=== PATIENT | female | born 1965 | race Caucasian/White ===

== ENCOUNTER 2018-11-05 11:55 | Observation (INO) | payer BC ==
[~2018-11-05] VITALS: Ht 152.4 cm; Wt 68.0 kg
[2018-11-05] MEDS ORDERED: ASPIRIN 81 MG CHEW TAB PO ONE (12:15)
[2018-11-05 12:27] LABS: BASOPHILS % 0.6 % (0.0-1.0); EOSINOPHILS # (AUTO) 0.1 (0.0-0.4); EOSINOPHILS % 1.6 % (0.0-6.0); HEMATOCRIT 40.2 % (34.2-44.1); HEMOGLOBIN 13.2 g/dL (12.0-16.0); LYMPHOCYTES # (AUTO) 1.7 (1.0-3.2); LYMPHOCYTES % 33.9 % (18.0-39.1); MEAN CORPUSCULAR HEMOGLOBIN 27.7 pg (28-32); MEAN CORPUSCULAR HGB CONC 32.8 g/dL (31-35); MEAN CORPUSCULAR VOLUME 84.3 fL (81-99); MONOCYTES # (AUTO) 0.4 (0.2-0.8); MONOCYTES % 7.7 % (4.4-11.3); NEUTROPHILS # (AUTO) 2.8 (2.1-6.9); PLATELET COUNT 235 x10e3/uL (140-360); RED BLOOD COUNT 4.77 x10e6/uL (3.6-5.1); RED CELL DISTRIBUTION WIDTH 13.7 % (11.7-14.4)
[2018-11-05 12:40] LABS: ALANINE AMINOTRANSFERASE 18 IU/L (0-55); ALBUMIN 4.1 g/dL (3.5-5.0); ALKALINE PHOSPHATASE 115 IU/L (40-150); ANION GAP 9.8 mmol/L (8-16); BLOOD UREA NITROGEN 18 mg/dL (7-26); BUN/CREATININE RATIO 20 (6-25); CALCIUM 10.1 mg/dL (8.4-10.2); CARBON DIOXIDE 29 mmol/L (22-29); CHLORIDE 101 mmol/L (98-107); CREATINE KINASE 76 IU/L (29-168); CREATININE, SERUM 0.88 mg/dL (0.57-1.11); EST GLOMERULAR FILTRATION RATE > 60 ML/MIN (60-); GLUCOSE 118 mg/dL (74-118); POTASSIUM 3.8 mmol/L (3.5-5.1); SODIUM 136 mmol/L (136-145)
--- NOTE | 2018-11-05 12:45 | NUR ---
Dr. Randolph at bedside.
[2018-11-05 12:51] LABS: INR 0.87; PROTHROMBIN TIME 12.3 seconds (11.9-14.5)
[2018-11-05 12:52] LABS: PARTIAL THROMBOPLASTIN TIME 30.3 seconds (23.8-35.5)
[2018-11-05] MEDS ORDERED: ESIDRIX25 MG PO (12:53)
[2018-11-05] MEDS ORDERED: MOTRIN800 MG PO (12:53)
[2018-11-05] MEDS ORDERED: SERTRALINE HCL50 MG PO (12:53)
[2018-11-05] MEDS ORDERED: CARVEDILOL25 MG (12:53)
[2018-11-05] MEDS ORDERED: LOSARTAN POTASS50 MG (12:53)
[2018-11-05] MEDS ORDERED: CLONAZEPAM0.5 MG (12:53)
[2018-11-05] MEDS ORDERED: ULTRAM 50MG50 MG PO (12:53)
[2018-11-05] MEDS ORDERED: PROMETHAZINE HC25 M1 (12:53)
[2018-11-05] MEDS ORDERED: ONDANSETRON HCL INJ 2MG/ML 2ML 2 MG/ML VIAL IV STA (12:56)
[2018-11-05] MEDS ORDERED: MORPHINE SULFATE 2 MG/ML SYR 1ML IV STA (12:56)
[2018-11-05] MEDS ORDERED: HALOPERIDOL LACTATE 5 MG/ML VIAL IV ONE (13:00)
--- NOTE | 2018-11-05 13:12 | Diagnostic Imaging Report ---
EXAM: CHEST SINGLE (PORTABLE) DATE: 11/05/2018 12:04 PM INDICATION: Chest pain COMPARISON: None FINDINGS: Lines and tubes: None Heart size normal. No focal pulmonary opacity, pleural effusion or pneumothorax. Upper abdomen unremarkable. No acute bony abnormality. IMPRESSION: No evidence for acute disease. Signed by: Dr. Luis Baca M.D. on 11/05/2018 1:09 PM
[2018-11-05] MEDS ORDERED: MORPHINE SULFATE INJ 4 MG/ML INJ 1ML IV SCH (13:15)
[2018-11-05 13:16] LABS: CLARITY,URINE CLEAR (CLEAR); COLOR,URINE YELLOW (YELLOW)
[2018-11-05 13:17] LABS: BILIRUBIN,URINE NEGATIVE (NEGATIVE); KETONES,URINE NEGATIVE (NEGATIVE); LEUKOCYTE ESTERASE ,URINE NEGATIVE (NEGATIVE); NITRITE,URINE NEGATIVE (NEGATIVE); PROTEIN,URINE DIPSTICK NEGATIVE (NEGATIVE); URINE UROBILINOGEN 0.2 mg/dL (0.2 - 1)
[2018-11-05 13:28] LABS: BACTERIA,URINE FEW /HPF; EPITHELIAL CELLS,URINE MANY /LPF
--- NOTE | 2018-11-05 13:28 | NUR ---
Room darkened to decrease stimuli, pt positioned to comfort. Pt's door is left open per pt request to "get some air."
[2018-11-05] MEDS ORDERED: KETOROLAC TROMETHAMINE 30 MG/ML VIAL IV ONE (14:53)
[2018-11-05] MEDS ORDERED: ONDANSETRON HCL INJ 2MG/ML 2ML 2 MG/ML VIAL IV PRN (19:00)
[2018-11-05] MEDS ORDERED: HYDROMORPHONE 1MG/1ML INJ IV PRN (19:00)
[2018-11-05] MEDS ORDERED: HYDROMORPHONE 2MG/ML 2 MG/ML ML IV PRN (19:00)
[2018-11-05] MEDS ORDERED: NITROGLYCERIN 0.4 MG SUBL SL PRN (19:00)
[2018-11-05] MEDS ORDERED: SODIUM CHLORIDE FLUSH 10 ML SYR INJ PRN (19:00)
[2018-11-05] MEDS: FAMOTIDINE 20 MG TAB PO SCH (19:52)
[2018-11-05 21:14] LABS: CREATINE KINASE MB 2.5 ng/mL (0-5.0)
--- OUTSIDE RECORDS SUMMARY | 2018-11-05 21:17 | XMS REPORT ---
Author Author [facility] Address Unknown Phone Unavailable Care Team Providers Care Fire Equipment Inspector Helper Name Role Phone Angel CASTILLO Unavailable Unavailable Problems This patient has no known problems. Allergies, Adverse Reactions, Alerts This patient has no known allergies or adverse reactions. Medications This patient has no known medications. Results Test Description Test Time Test Comments Text Results Atomic Results Result Comments CHEST SINGLE (PORTABLE) 2018-11-05 13:08:00 [facility] [address] [place] [address] Patient Name: YEISON ZURITA MR #: [id number] : 1965 Age/Sex: 53/F Req #: [id number] Adm Physician: Ordered by: RAEANN CASTILLO MD Report #: [id number] Location: ER Room/Bed: Procedure: [id number] DX/CHEST SINGLE (PORTABLE) Exam Date: 11/05/18 Exam Time: 1230 REPORT STATUS: Signed EXAM: CHEST SINGLE (PORTABLE) DATE: 11/05/2018 12:04 PM INDICATION: Chest pain COMPARISON: None FINDINGS: Lines and tubes: None Heart size normal. No focal pulmonary opacity, pleural effusion or pneumothorax. Upper abdomen unremarkable. No acute bony abnormality. IMPRESSION: No evidence for acute disease. Signed by: Dr. Raeann Campo M.D. on 11/05/2018 1:09 PM Dictated By: RAEANN CAMPO MD [id number] Transcribed By: HELEN on 11/05/18 1300 COPY TO: RAEANN CASTILLO MD
[2018-11-05 21:32] VITALS: BP 166/75
--- NOTE | 2018-11-05 21:32 | NUR ---
pt received from er via stretcher. no ss of distress noted upon admission. pt made comfortable and oriented to rm. tele in place. pt co mild chest discomfort. discussed pain mngt poc. hx obtained at time. will cont to follow poc. call quach within reach.
[2018-11-05 22:00] VITALS: BP 166/75
[2018-11-05] MEDS ORDERED: KETOROLAC TROMETHAMINE 30 MG/ML VIAL IV STA (22:29)
--- NOTE | 2018-11-05 22:29 | NUR ---
spoke to dr valenzuela visual communications instructor for dr das in regards to new consult and pain mngt. new orders received.
[2018-11-05] MEDS ORDERED: ACETAMINOPHEN 325 MG TAB PO PRN (22:30)
[2018-11-06] VITALS (7 sets, daily range): BP systolic 162–179; BP diastolic 72–87
[2018-11-06 03:53] LABS: BASOPHILS % 0.7 % (0.0-1.0); EOSINOPHILS # (AUTO) 0.1 (0.0-0.4); EOSINOPHILS % 1.6 % (0.0-6.0); HEMOGLOBIN 12.5 g/dL (12.0-16.0); LYMPHOCYTES # (AUTO) 1.8 (1.0-3.2); LYMPHOCYTES % 31.4 % (18.0-39.1); MEAN CORPUSCULAR HEMOGLOBIN 27.5 pg (28-32); MEAN CORPUSCULAR HGB CONC 32.9 g/dL (31-35); MEAN CORPUSCULAR VOLUME 83.5 fL (81-99); MONOCYTES # (AUTO) 0.6 (0.2-0.8); MONOCYTES % 9.7 % (4.4-11.3); NEUTROPHILS # (AUTO) 3.3 (2.1-6.9); NEUTROPHILS % 56.4 % (38.7-80.0); PLATELET COUNT 208 x10e3/uL (140-360); RED BLOOD COUNT 4.55 x10e6/uL (3.6-5.1); RED CELL DISTRIBUTION WIDTH 13.6 % (11.7-14.4)
--- NOTE | 2018-11-06 03:56 | NUR ---
blood collected and sent to lab. no ss of distress noted. call quach within reach.
[2018-11-06 04:03] LABS: ANION GAP 13.1 mmol/L (8-16); BLOOD UREA NITROGEN 20 mg/dL (7-26); BUN/CREATININE RATIO 23 (6-25); CARBON DIOXIDE 25 mmol/L (22-29); CHLORIDE 100 mmol/L (98-107); CHOL/HDL RATIO 3.4 (3.0-3.6); CHOLESTEROL 219 MD/DL (0-199); CREATININE, SERUM 0.87 mg/dL (0.57-1.11); EST GLOMERULAR FILTRATION RATE > 60 ML/MIN (60-); GLUCOSE 91 mg/dL (74-118); HDL CHOLESTEROL 65 MG/DL (40-60); LDL CHOLESTEROL 144 MG/DL (60-130); POTASSIUM 3.1 mmol/L (3.5-5.1); SODIUM 135 mmol/L (136-145); TRIGLYCERIDES 50 MG/DL (0-149)
[2018-11-06 04:16] LABS: CALCIUM 9.6 mg/dL (8.4-10.2)
--- NOTE | 2018-11-06 04:26 | NUR ---
pt resting. no ss of distress noted. call quach within reach.
[2018-11-06 05:30] LABS: CREATINE KINASE MB 2.1 ng/mL (0-5.0)
[2018-11-06] MEDS: FAMOTIDINE 20 MG TAB PO SCH (08:35)
[2018-11-06] MEDS ORDERED: ASPIRIN 81 MG ENTERIC COATED PO SCH (09:00)
[2018-11-06] MEDS ORDERED: POTASSIUM CHLORIDE 20 MEQ TAB CR PO ONE (15:30)
--- NOTE | 2018-11-06 20:18 | Consultation ---
DATE OF CONSULTATION: 11/06/2018 Cardiology Consultation REASON FOR CONSULTATION: Chest pain. HISTORY OF PRESENT ILLNESS: This is a 53-year-old woman with history of patent ductus arteriosus, for which status post closure, hypertension, and hyperlipidemia, who presents with complaints of chest pain. The patient indicates that she had been feeling well until yesterday when she experienced left-sided chest pain while seated. She reports that chest pain was associated with diaphoresis, shortness of breath, and nausea. The pain was 10/10 in severity and lasted hours until she presented to the ER and was given medications. She denied any orthopnea or PND, but does endorse chronic edema. In addition, she indicates that she continues to have glue come out from one of the access sites for her vein ablation. REVIEW OF SYSTEMS: Negative as per HPI. PAST MEDICAL HISTORY: 1. History of patent ductus arteriosus. 2. Hypertension. 3. Hyperlipidemia. 4. Venous insufficiency, status post ablation. PAST SURGICAL HISTORY: Bunionectomy. ALLERGIES: PLEASE SEE EMR. MEDICATIONS: Please see medication list. SOCIAL HISTORY: Denies tobacco or illicit drugs, but does drink occasionally. FAMILY HISTORY: Unknown as she was adopted. PHYSICAL EXAMINATION: VITAL SIGNS: Temperature 97.5 degrees, pulse 80, respiratory rate 17, blood pressure 162/72, oxygen saturation 98% on room air. GENERAL: Awake, alert, no acute distress. Well developed, well nourished. HEENT: Normocephalic and atraumatic. Pupils equal. No scleral icterus. NECK: Supple. No thyromegaly or cervical lymphadenopathy. No carotid bruits. LUNGS: Clear to auscultation bilaterally. No wheezes or crackles. CARDIOVASCULAR: Normal rate, regular rhythm. No murmur. Normal S1, S2. ABDOMEN: Soft, nontender. EXTREMITIES: No edema. NEURO: Nonfocal exam. LABORATORY DATA: WBC 5.76, hemoglobin 12.5, hematocrit 38, platelets 208. Sodium 135, potassium 3.1, chloride 100, CO2 25, BUN 20, creatinine 0.87. Troponin 0.007. Cholesterol 219, LDL 144, HDL 65, triglycerides 50. EKG, normal sinus rhythm, minimal voltage criteria for LVH, may be normal variant. ST abnormality, possible digitalis effect. IMAGING STUDIES: Chest x-ray, no evidence for acute disease. IMPRESSION: 1. Atypical chest pain. 2. Hypertension. 3. Hyperlipidemia. 4. Venous insufficiency, status post ablation. RECOMMENDATIONS: The patient has ruled out for myocardial infarction as chest pain is atypical. The patient can be discharged and follow up with an outpatient nuclear stress test. Continue home cardiac medications. Resume hydrochlorothiazide for blood pressure control. We will assess blood pressure response. We will request General Surgery evaluation. The patient's leg, given continued drainage from the venous access site. Thank you for this consult. We will continue to follow. Maria Teresa Pratt MD ABS/MODL /[id number]
== END 2018-11-06 16:09 | disposition home or self-care (01) ==
LOC: ER 11:55 → ERHOLD 21:14 → IMCU 21:30
DX: R07.89 Other chest pain (principal); I11.0 Hypertensive heart disease with heart failure; I50.9 Heart failure, unspecified; E78.5 Hyperlipidemia, unspecified; F41.1 Generalized anxiety disorder; K21.9 Gastro-esophageal reflux disease without esophagitis; I87.2 Venous insufficiency (chronic) (peripheral); Q25.0 Patent ductus arteriosus
CPT/HCPCS: 36415 ×2; 71045; 80048; 80053; 80061; 81001; 82550 ×2; 82553 ×2; 83880; 84484 ×2; 85025 ×2; 85379; 85610; 85730; 93005; 96374; 96376; 99284; G0378 ×2; J1630; J1885; J2270; J2405